=== PATIENT | female | born 1960 | race Caucasian/White ===

== ENCOUNTER 2021-04-08 16:23 | Inpatient (IN) | payer OTHER, MEDICAID ==
[~2021-04-08] VITALS: Ht 154.9 cm; Wt 80.3 kg
[2021-04-08 16:23] VITALS: BP_SYST 143
--- NOTE | 2021-04-08 16:23 | NUR ---
BROUGHT BACK TO BED #7 AND TRIAGED. REPORT GIVEN TO RICHY
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
--- NOTE | 2021-04-08 16:30 | NUR ---
ER at bedside examining patient.
--- NOTE | 2021-04-08 16:37 | NUR ---
Pt was saturating 88% on RA. Pt put on 3L simple face mask saturating 94% RR 25.
--- NOTE | 2021-04-08 16:43 | NUR ---
Upon further examination pt reports she did not lose consioussness and she is having some midline back pain 5/10.
--- NOTE | 2021-04-08 16:43 | NUR ---
Pt has equal japanese interpreter strength in bilateral hands radial pulse palpable in right radial and brachial. Pt reports she cannot lift her right arm. Cap refill less than 2
--- NOTE | 2021-04-08 16:43 | NUR ---
X-ray at bedside.
--- NOTE | 2021-04-08 17:17 | NUR ---
Dr. eMlgar at bedside performing ultrasound examination.
--- NOTE | 2021-04-08 18:21 | NUR ---
Lab at bedside.
--- NOTE | 2021-04-08 18:23 | NUR ---
Pt asleep in [facility] attached to monitor VSS. Breathing is even and unlabored. Family at bedside.
--- NOTE | 2021-04-08 18:35 | NUR ---
Covid swab collected and sent to lab.
--- NOTE | 2021-04-08 18:35 | NUR ---
Breathing is even and unlabored.
--- NOTE | 2021-04-08 18:35 | NUR ---
Pt taken off face mask saturating 97% RA. RR 20
--- NOTE | 2021-04-08 18:45 | NUR ---
PT HAD LARGE AMT OF EMESIS, UNDIGESTED FOOD, PT CLEANED AND REDRESSED. DR GODOY AWARE
--- NOTE | 2021-04-08 18:53 | NUR ---
Pt vomitted. Pt given zofran per MD order. Pt cleaned and given new gown.
[2021-04-08 18:56] LABS: BASOPHILS % (AUTO) 0.3 % (0.0-2.0); EOSINOPHILS # (AUTO) 0.1 K/uL (0.0-0.4); EOSINOPHILS % (AUTO) 0.5 % (0.0-4.0); HEMATOCRIT 34.9 % (36-48); HEMOGLOBIN 11.5 g/dL (12.0-16.0); LYMPHOCYTES # (AUTO) 1.4 K/uL (1.0-5.5); LYMPHOCYTES % (AUTO) 9.3 % (20.5-51.5); MEAN CORPUSCULAR HEMOGLOBIN 30 pg (27-31); MEAN CORPUSCULAR HGB CONC 33 % (32-36); MEAN CORPUSCULAR VOLUME 92 fL (79.0-98.0); MONOCYTES # (AUTO) 1.3 K/uL (0.0-1.0); MONOCYTES % (AUTO) 8.5 % (1.7-9.3); NEUTROPHILS # (AUTO) 12.7 K/uL (1.8-7.7); NEUTROPHILS % (AUTO) 81.4 % (40.0-70.0); PLATELET COUNT (AUTO) 211 K/uL (130-430); RED CELL DISTRIBUTION WIDTH 13.9 % (9.0-15.0); WHITE BLOOD COUNT (AUTO) 15.6 K/uL (4.8-10.8)
[2021-04-08] MEDS ORDERED: ONDANSETRON HCL 4 MG/2 ML VIAL IVP ONE (19:00)
[2021-04-08 19:02] LABS: CALCIUM 8.6 mg/dL (8.4-11.0); CREATININE 0.75 mg/dL (0.55-1.30); POTASSIUM 3.3 mmol/L (3.5-5.1)
[2021-04-08 19:08] LABS: ALBUMIN 3.5 g/dL (3.4-4.8); TOTAL BILIRUBIN 0.4 mg/dL (0.0-1.0)
--- NOTE | 2021-04-08 19:20 | NUR ---
Patient transported to radiology via gurney, accompanied by rayray.
--- NOTE | 2021-04-08 19:39 | NUR ---
Pt back from CT.
--- NOTE | 2021-04-08 19:41 | NUR ---
Care endorsed to Rajan LOPEZ.
--- NOTE | 2021-04-08 20:00 | NUR ---
PT RESTING IN BED COMFORTBALLY AWAITING TRANSFER. FAMILY MEMBER AT BEDSIDE
[2021-04-08] MEDS ORDERED: D5/0.45 NS 1,000 ML IV SCH (20:45)
--- NOTE | 2021-04-08 21:00 | NUR ---
Patient will be admitted to care of DR TAVARES. Admitted to MS unit. Will go to room TBD. Belongings list completed. Complete and up to date summary report printed. SBAR report to be given at bedside with opportunity for questions.
--- NOTE | 2021-04-08 21:26 | NUR ---
PT IS FULL CODE
--- NOTE | 2021-04-08 21:27 | NUR ---
OLEG CESPEDES DONE
[2021-04-08] MEDS ORDERED: LOSA50TA3 PO (21:30)
[2021-04-08] MEDS ORDERED: METF-518 PO (21:30)
[2021-04-08] MEDS ORDERED: LEVO100T9 PO (21:30)
[2021-04-08] MEDS ORDERED: PANT20TA2 PO (21:30)
[2021-04-08] MEDS ORDERED: LIP10 PO (21:30)
--- NOTE | 2021-04-08 21:53 | NUR ---
[facility] EMT TRANSFERRING PT TO 106 A. REPORT GIVEN TO NURSE OVER THE PHONE
--- NOTE | 2021-04-08 21:57 | NUR ---
ADMISSION NOTE Received patient from ER via gurney. Patient admitted with diagnosis of right humerus fracture . Patient is awake, alert, oriented X 4. Patient oriented to hospital room, call light, toileting, pain management and safety-teach back done. pt is aerobic speaking. Adult son at bedside translating. vs taken and wnl. iv patent and intact. Patient informed that their room number is 106. Personal belongings checked and Belongings List documented. All belongings sent home with family. Call light within reach. Bed in lowest and locked position. safety precuations placed.
--- NOTE | 2021-04-08 22:05 | NUR ---
CONSULT REQUEST PT REQUESTING DR. BARRAZA FOR ORTHOPEDIC CARE. PT SON STATES THAT DR. BARRAZA IS FAMILY.
[2021-04-08 22:18] VITALS: BP_SYST 108
[2021-04-08] MEDS ORDERED: HYDROcodone/ACETAMIN 5-325 MG TAB (NORCO/ VICODIN) PO PRN (22:30)
[2021-04-08] MEDS ORDERED: NALOXONE HCL 0.4 MG/ML AMP (NARCAN) IVP PRN ×2 (22:30→23:45)
[2021-04-08] MEDS ORDERED: ONDANSETRON 4 MG ODT TAB PO PRN (22:30)
--- NOTE | 2021-04-08 22:48 | NUR ---
PT FAMILY AT BEDSIDE AND ADULT DAUGHTER AT BEDSIDE WITH PT AND ADULT SON.
--- NOTE | 2021-04-08 23:23 | NUR ---
ROUNDS PT RESTING IN BED WITH ADULT SON AT BEDSIDE. NO SIGNS OF DISTRESS NOTED. RESPIRATIONS EVEN AND UNLABORED ON RA. PT REQUESTS ANTIHISTAMINE SPRAY. WILL PAGE MD FOR ORDERS. PER SLEEVE WHEEL MAKER AND CHARGE NURSE, SON IS ALLOWED TO STAY THE NIGHT FOR TONIGHT. PT AND SON EDUCATED AND INFORMED. PT AND SON VERBALIZED UNDERSTANDING.
[2021-04-08 23:35] VITALS: BP_SYST 106
[2021-04-08] MEDS ORDERED: DEXTROSE 50% JECT 50 ML DISP.SYRIN IVP PRN (23:45)
[2021-04-08] MEDS ORDERED: GLUCOSE (DEXTROSE) ORAL GEL -Adults PO PRN (23:45)
[2021-04-08] MEDS ORDERED: D5W 1,000 ML IV PRN (23:45)
[2021-04-08] MEDS ORDERED: LORazepam 2 MG/ML VIAL IVP PRN (23:45)
[2021-04-08] MEDS ORDERED: ONDANSETRON HCL 4 MG/2 ML VIAL IVP PRN (23:45)
--- NOTE | 2021-04-09 00:45 | NUR ---
CONSULTATION CALLED FOR DR LI FOR CONSULT OF HUMERUS FX ORDER BY DR MEDLEY SPOKE WITH GARRETT
[2021-04-09] MEDS: MORPHINE 2 MG/ML INJ. SYRINGE IVP PRN ×4 (03:31→20:06)
--- NOTE | 2021-04-09 03:58 | NUR ---
Consultation Paged Reason for Consultation: cardiac clearance Was consult called: Y Person who was notified: Giancarlo Consulting Physician: Neil Xiong Ordering Physician: Federico Matamoros
[2021-04-09] MEDS: INSULIN REGULAR, HUMAN 100 UNITS/ML, 10 ML VIAL (humuLIN R) SUBCUT PRN ×2 (05:17→17:57)
--- NOTE | 2021-04-09 05:45 | NUR ---
BLOOD SUGAR 312. REGULAR INSULIN ADMINISTERED PER SLIDING SCALE ORDER. PT CONCERNED ABOUT HAVING TO GET INSULIN PERMANENTLY. PT EDUCATED ON PLAN OF CARE AND INTERVENTIONS FOR ELEVATED BLOOD GLUCOSE. PT VERBALIZED UNDERSTANDING.
--- NOTE | 2021-04-09 05:54 | NUR ---
RADIOLOGY AT BEDSIDE PORTABLE XRAY
--- NOTE | 2021-04-09 06:27 | NUR ---
CLOSING NOTE PATIENT LAYING IN BED WITH EYES CLOSED. RESPIRATIONS EVEN AND UNLABORED ON RA. NO SIGNS OF DISTRESS NOTED. LEFT HAND IV PATENT AND INTACT. FLUSHES WELL. SALINE LOCKED. PT SON AT BEDSIDE. SAFETY PRECAUTIONS IN PLACE. ALL NEEDS MET.
--- NOTE | 2021-04-09 06:52 | NUR ---
Nutrition Update Samir Scale 16 noted. Pt admitted for Humerus Fracture Diet: NPO and CCHO (2 active diet orders) BMI: 33.5 kg/m2 RD to follow per nutrition care standards.
[2021-04-09 07:05] LABS: BASOPHILS % (AUTO) 0.1 % (0.0-2.0); HEMATOCRIT 28.7 % (36-48); HEMOGLOBIN 9.7 g/dL (12.0-16.0); LYMPHOCYTES # (AUTO) 0.6 K/uL (1.0-5.5); LYMPHOCYTES % (AUTO) 8.5 % (20.5-51.5); MEAN CORPUSCULAR HEMOGLOBIN 31 pg (27-31); MEAN CORPUSCULAR HGB CONC 34 % (32-36); MEAN CORPUSCULAR VOLUME 91 fL (79.0-98.0); MONOCYTES # (AUTO) 0.8 K/uL (0.0-1.0); MONOCYTES % (AUTO) 10.8 % (1.7-9.3); NEUTROPHILS # (AUTO) 5.7 K/uL (1.8-7.7); NEUTROPHILS % (AUTO) 80.6 % (40.0-70.0); PLATELET COUNT (AUTO) 166 K/uL (130-430); RED BLOOD CELL COUNT(AUTO) 3.16 MIL/uL (4.2-6.2); WHITE BLOOD COUNT (AUTO) 7.1 K/uL (4.8-10.8)
[2021-04-09 07:06] LABS: INR 1.1 (0.8-1.2); PROTHROMBIN TIME 11.8 SECS (9.5-12.5)
[2021-04-09 07:25] LABS: ALBUMIN 3.1 g/dL (3.4-4.8); CALCIUM 8.7 mg/dL (8.4-11.0); CREATININE 0.73 mg/dL (0.55-1.30); PHOSPHORUS 2.7 mg/dL (2.7-4.5); POTASSIUM 3.6 mmol/L (3.5-5.1); TOTAL BILIRUBIN 0.3 mg/dL (0.0-1.0)
--- NOTE | 2021-04-09 07:30 | NUR ---
Morning Rounds: Patient resting during rounds. With limited right shoulder movement due to fracture. Son at the bedside. Call light with in reach. Bed locked at lowest position. Condition guarded.
[2021-04-09 08:00] VITALS: BP_SYST 118
--- NOTE | 2021-04-09 09:10 | NUR ---
Banks insertion: Patient had a right shoulder fracture and not able to move her hips with assistance,because of pain. Banks inserted aseptically as ordered, using Maori #16,obtained urine sample for urinalysis.
[2021-04-09] MEDS: DOCUSATE SODIUM 100 MG CAPSULE PO SCH ×2 (10:02→22:21)
--- NOTE | 2021-04-09 10:04 | NUR ---
Iv pain meds: Patient c/o right shoulder pain and iv Morphine given per request,with no problem.
[2021-04-09 10:18] LABS: BILIRUBIN,URINE NEGATIVE (NEGATIVE); BLOOD, URINE 3+ (NEGATIVE); CLARITY/URINE CLEAR (CLEAR); COLOR,URINE YELLOW (YELLOW); GLUCOSE,URINE 3+ (NEGATIVE); KETONES,URINE NEGATIVE (NEGATIVE); LEUKOCYTE ESTERASE ,URINE NEGATIVE (NEGATIVE); NITRITE, URINE NEGATIVE (NEGATIVE); PROTEIN URINE 1+ (NEGATIVE); UROBILINOGEN,URINE 0.2 (0.2-1.0)
[2021-04-09 11:26] VITALS: BP_SYST 120
[2021-04-09 11:34] LABS: BACTERIA,URINE RARE /HPF (None Seen); MUCUS,URINE 3+ /LPF (None Seen); WBC,URINE 0-3 /HPF (0-3)
--- NOTE | 2021-04-09 14:35 | NUR ---
Surgeon rounds: Dr Larsen in the room and spoke with patient.Per patient and family Dr. Larsen will not performed the surgery instead Dr Ordaz will.Will f/u Dr Ordaz per patient's request.
[2021-04-09 15:33] VITALS: BP_SYST 120
--- NOTE | 2021-04-09 15:39 | NUR ---
Morphine iv: Patient c/o right shoulder pain and iv Morphine given per patient's request. No problem.
--- NOTE | 2021-04-09 15:48 | NUR ---
PUT ANOTHER CALL TO ORTHO CONSULT DR LI. SPOKE TO DR LI AND HE SAID HE WILL BE HERE IN 15 MINS.
--- NOTE | 2021-04-09 16:50 | NUR ---
ORTHO SURGEON: DR LI IN THE ROOM AND SPOKE TO FAMILY AND PATIENT.EXPLAINED PATIENT THE PROCEDURE TO BE DONE TOMORROW AND AGREEABLE.DISCUSSED PLAN OF CARE.
[2021-04-09] MEDS ORDERED: LIDOCAINE PATCH 5% 1 EA TP ONE (17:15)
--- NOTE | 2021-04-09 18:09 | NUR ---
EVENING ROUNDS: PATIENT RESTING. BLOOD SUGAR TAKEN,WITH INSULIN COVERAGE GIVEN PER SLIDING SCALE.PATIENT ATE DINNER ALREADY. INSTRUCTED PATIENT NOTHING BY MOUTH AFTER MIDNIGHT AND UNDERSTOOD INSTRUCTIONS GIVEN.FAMILY AT THE BEDSIDE. WILL ENDORSED TO NIGHT NURSE TO SECURE CONSENT. STABLE.
[2021-04-09 21:57] VITALS: BP_SYST 129
[2021-04-09] MEDS: HYDROmorphone 2 MG/ML VIAL IVP PRN (23:32)
[2021-04-10] MEDS: MORPHINE 2 MG/ML INJ. SYRINGE IVP PRN ×2 (00:41→10:37)
[2021-04-10] MEDS: INSULIN REGULAR, HUMAN 100 UNITS/ML, 10 ML VIAL (humuLIN R) SUBCUT PRN ×4 (00:55→23:51)
--- NOTE | 2021-04-10 00:56 | NUR ---
I RECEIVED PT IN BED ALERT ORIENTED FAMILY IS AT BEDSIDE ,SHE IS ON RA LUNGS ARE CLEAR , VSS , SL INTACT AND PATENT , SKIN INTACT .THE SIGNED CONSENT FOR SURGERLY AND BLOOD TRANSFUSION , LATER SHE C/O PAINFUL SHOULDER AND ASKED FOR MORPHONE I AGAVE IT TO HER SHE SLEPT UNTIL MN WHEN SHE WOKE UP AND ASKED DILAUDID AND I GAVE IT TO HER AFTER I HR SHE ASKED FOR MORHINE AND I GAVE IT TO HER AND I CHECKED HER BLOOD SUGAR AND WAS 162 AND SHE REFUSED INSULIN BECAUSE SHE IS GOING TO NPO , IS AT BED SIDE
[2021-04-10 00:57] VITALS: BP_SYST 135
[2021-04-10] MEDS: HYDROmorphone 2 MG/ML VIAL IVP PRN (03:29)
--- NOTE | 2021-04-10 04:19 | NUR ---
PT IS SLEEPING WELL AFTER GETTING DILAUDID , VSS
[2021-04-10] MEDS: MORPHINE 4 MG INJ. 4 MG/ML VIAL IVP PRN ×2 (05:26→23:39)
--- NOTE | 2021-04-10 05:42 | NUR ---
PT ASKED FOR PAIN MEDICATION DILAUDID IS NOT DUE AND SHE WANTS A STRONG PAIN MED BECAUSE SHE IS IN SEVERE PAIN , SO MORPHINE 4MG GIVEN AND BLOOD SUGAR CHECKED AND IS 128 NO COVERAGE
[2021-04-10 06:14] VITALS: BP_SYST 130
--- NOTE | 2021-04-10 06:42 | NUR ---
PTS PAIN WAS WELL CONTROLLED SHE SLEPT WELL
[2021-04-10 07:19] LABS: BASOPHILS % (AUTO) 0.4 % (0.0-2.0); EOSINOPHILS # (AUTO) 0.1 K/uL (0.0-0.4); EOSINOPHILS % (AUTO) 0.7 % (0.0-4.0); HEMOGLOBIN 9.3 g/dL (12.0-16.0); LYMPHOCYTES # (AUTO) 1.8 K/uL (1.0-5.5); LYMPHOCYTES % (AUTO) 22.4 % (20.5-51.5); MEAN CORPUSCULAR HEMOGLOBIN 30 pg (27-31); MEAN CORPUSCULAR HGB CONC 33 % (32-36); MEAN CORPUSCULAR VOLUME 91 fL (79.0-98.0); MONOCYTES # (AUTO) 0.8 K/uL (0.0-1.0); MONOCYTES % (AUTO) 10.7 % (1.7-9.3); NEUTROPHILS # (AUTO) 5.2 K/uL (1.8-7.7); NEUTROPHILS % (AUTO) 65.8 % (40.0-70.0); PLATELET COUNT (AUTO) 152 K/uL (130-430); RED BLOOD CELL COUNT(AUTO) 3.08 MIL/uL (4.2-6.2); RED CELL DISTRIBUTION WIDTH 13.9 % (9.0-15.0); WHITE BLOOD COUNT (AUTO) 7.9 K/uL (4.8-10.8)
--- NOTE | 2021-04-10 07:45 | NUR ---
OPENING NOTES: PATIENT RESTING IN BED. BREATHING EVEN AND NON LABORED. NPO. DENIES DISCOMFORT AT THIS TIME. FALL AND SAFETY REINFORCED. CALL LIGHT WITHIN REACH.
[2021-04-10 07:49] LABS: CALCIUM 8.8 mg/dL (8.4-11.0); CREATININE 0.61 mg/dL (0.55-1.30); POTASSIUM 3.8 mmol/L (3.5-5.1)
[2021-04-10 08:00] VITALS: BP_SYST 101
[2021-04-10] MEDS: DOCUSATE SODIUM 100 MG CAPSULE PO SCH ×2 (09:00→20:32)
[2021-04-10] MEDS ORDERED: LIDOCAINE PATCH 5% 1 EA TP SCH (09:00)
[2021-04-10 11:25] VITALS: BP_SYST 116
[2021-04-10] MEDS ORDERED: CEFAZOLIN 1 GM IVPB PREMIX 50 ML IV ONE (13:46)
[2021-04-10] MEDS ORDERED: BUPIVACAINE LIPOSOME/PF 266 MG/20 ML VIAL INFIL ONE ×2 (13:46→17:25)
[2021-04-10] MEDS ORDERED: POLYMYXIN 500,000/BACIT.10,000 UNITS in NS IRR 1 L IR ONE (13:48)
--- NOTE | 2021-04-10 13:50 | NUR ---
PATIENT BROUGHT TO OR: PATIENT BROUGHT TO OR VIA GURNEY FOR ORIF, RIGHT SHOULDER. PATIENT IN STABLE CONDITION.
[2021-04-10] MEDS ORDERED: fentaNYL CITRATE/PF 100 MCG/2 ML AMP IVP PRN (15:45)
[2021-04-10] MEDS ORDERED: ONDANSETRON HCL 4 MG/2 ML VIAL IVP PRN (15:45)
[2021-04-10] MEDS ORDERED: METOCLOPRAMIDE HCL 10 MG/2 ML VIAL IVP PRN (15:45)
[2021-04-10] MEDS ORDERED: CEFAZOLIN 2 GM IVPB PREMIX 50 ML IV ONE (17:25)
[2021-04-10] MEDS ORDERED: MIDAZOLAM HCL 5 MG/ML VIAL (VERSED) IV ONE (17:25)
[2021-04-10] MEDS ORDERED: KETOROLAC TROMETHAMINE 30 MG VIAL ONE (17:25)
[2021-04-10] MEDS ORDERED: WATER FOR IRRIGATION,STERILE 1,000 ML IRRIG.SOLN IR ONE (17:25)
[2021-04-10] MEDS ORDERED: SEVOFLURANE 15 MIN GAS INH ONE (17:25)
[2021-04-10] MEDS ORDERED: LR 1,000 ML IV.SOLN IV ONE (17:25)
[2021-04-10] MEDS ORDERED: BUPIVACAINE /EPINEPHRINE/PF 0.25% 30 ML VIAL INJ ONE (17:25)
[2021-04-10] MEDS ORDERED: ROCURONIUM BROMIDE 10 MG/ML (ZEMURON) ONE (17:25)
[2021-04-10] MEDS ORDERED: NS IRRIG SOLN 1000 ML IR ONE (17:25)
[2021-04-10] MEDS ORDERED: ONDANSETRON HCL 4 MG/2 ML VIAL ONE (17:25)
[2021-04-10] MEDS ORDERED: METOCLOPRAMIDE HCL 10 MG/2 ML VIAL ONE (17:25)
[2021-04-10] MEDS ORDERED: PROPOFOL 200MG/ 20ML VIAL (DIPRIVAN) IV ONE (17:25)
[2021-04-10] MEDS ORDERED: DEXAMETHASONE SOD PHOSPHATE 4 MG/ML VIAL ONE (17:25)
[2021-04-10] MEDS ORDERED: fentaNYL CITRATE/PF 100 MCG/2 ML AMP ONE ×2 (17:25→17:50)
[2021-04-10] MEDS ORDERED: NALOXONE HCL 0.4 MG/ML AMP (NARCAN) IVP PRN (17:45)
[2021-04-10] MEDS: fentaNYL CITRATE/PF 100 MCG/2 ML AMP IVP PRN ×2 (17:47→18:10)
--- NOTE | 2021-04-10 18:30 | NUR ---
PATIENT BROUGHT BACK FROM OR: PATIENT BROUGHT BACK FROM OR S/P ORIF R ARM. STABLE VS. NO S/S OF ACUTE DISTRESS NOTED. BED LOCKED, ALARM ON AND IN LOWEST POSITION. CALL LIGHT WITHIN REACH.
--- NOTE | 2021-04-10 19:20 | NUR ---
CLOSING NOTES: PATIENT RESTING IN BED. NO SIGNS OF ACUTE DISTRESS NOTED. ICE PACK OVER SURGICAL SITE (ORIF) R SHOULDER. SCDS IN PLACED. BED LOCKED, ALARM ON AND IN LOWEST POSITION. FALL AND SAFETY REINFORCED. CALL LIGHT WITHIN REACH.
--- NOTE | 2021-04-10 19:30 | NUR ---
OPENING NOTE RECEIVED REPORT FROM DAY RN. PT LAYING IN BED WITH NO SIGNS OF DISTRESS NOTED. RESPIRATIONS EVEN AND UNLABORED ON 3L O2 VIA NC. PT , BROTHER AND DAUGHTER AT BEDSIDE. TAMEZ INTACT AND DRAINING YELLOW FLUID BY GRAVITY. LEFT HAND IV PATENT AND INTACT. FLUSHES WELL. NO SIGNS OF INFILTRATION. BED IN LOWEST AND LOCKED POSITION. PT C/O PAIN 5/10 AT THIS TIME TO RIGHT UPPER ARM AND LEFT RIBS. RIGHT UPPER ARM DRESSING CLEAN AND INTACT. NO DRAINAGE NOTED. PT HAS BRUISING TO RIGHT UPPER ARM. CALL LIGHT WITHIN REACH. SAFETY PRECAUTIONS IN PLACE. WILL CONTINUE TO MONITOR.
[2021-04-10 20:00] VITALS: BP_SYST 122
[2021-04-10] MEDS: HYDROcodone/ACETAMIN 5-325 MG TAB (NORCO/ VICODIN) PO PRN (20:31)
--- NOTE | 2021-04-10 20:31 | NUR ---
PAIN PT C/O PAIN 5/10 AND REQUESTING PRN MEDICATION. PT ABLE TO SWALLOW WELL. NO SIGNS OF DISTRESS NOTED. WILL CONTINUE TO MONITOR.
--- NOTE | 2021-04-10 21:04 | NUR ---
INCENTIVE SPIROMETER EDUCATED PT ON USE OF IS. PT ABLE TO DEMONSTRATE USING IS. PT VERBALIZED UNDERSTANDING WITH ADULT SON TRANSLATING.
[2021-04-10] MEDS: CEFAZOLIN 1 GM IVPB PREMIX 50 ML IV SCH (21:15)
[2021-04-11] VITALS (9 sets, daily range): BP systolic 85–119
--- NOTE | 2021-04-11 00:12 | NUR ---
BLOOD GLUCOSE BS 228. REGULAR INSULIN ADMINISTERED PER SLIDING SCALE. PT TOLERATED WELL.
[2021-04-11] MEDS: CEFAZOLIN 1 GM IVPB PREMIX 50 ML IV SCH (06:07)
[2021-04-11] MEDS: MORPHINE 4 MG INJ. 4 MG/ML VIAL IVP PRN ×3 (06:20→20:47)
--- NOTE | 2021-04-11 07:26 | NUR ---
CLOSING NOTE PT IN BED WITH RESPIRATIONS EVEN AND UNLABORED. NO SIGNS OF DISTRESS NOTED. ALL NEEDS MET. SAFETY PRECAUTIONS IN PLACE. CALL LIGHT WITHIN REACH. WILL ENDORSE TO DAY RN.
[2021-04-11 07:33] LABS: BASOPHILS % (AUTO) 0.2 % (0.0-2.0); EOSINOPHILS % (AUTO) 0.3 % (0.0-4.0); HEMOGLOBIN 7.1 g/dL (12.0-16.0); LYMPHOCYTES # (AUTO) 1.2 K/uL (1.0-5.5); LYMPHOCYTES % (AUTO) 12.4 % (20.5-51.5); MEAN CORPUSCULAR HEMOGLOBIN 30 pg (27-31); MEAN CORPUSCULAR HGB CONC 33 % (32-36); MEAN CORPUSCULAR VOLUME 91 fL (79.0-98.0); MONOCYTES % (AUTO) 10.3 % (1.7-9.3); NEUTROPHILS # (AUTO) 7.6 K/uL (1.8-7.7); NEUTROPHILS % (AUTO) 76.8 % (40.0-70.0); PLATELET COUNT (AUTO) 148 K/uL (130-430); RED BLOOD CELL COUNT(AUTO) 2.34 MIL/uL (4.2-6.2); RED CELL DISTRIBUTION WIDTH 13.9 % (9.0-15.0); WHITE BLOOD COUNT (AUTO) 9.9 K/uL (4.8-10.8)
--- NOTE | 2021-04-11 08:00 | NUR ---
Opening note patient resting in bed, a/ox4, states she has mild but tolerable pain at this time, assessment complete, IV line is patent and infusing well, Banks catheter in place draining to gravity, dressing to right upper lateral arm is clean, dry and intact, educated patient on plan of care and call light system, she verbalized understanding, family is at bedside, continuing to monitor, bed in lowest position, two side rails up, call light within reach, fall and aspiration precautions in place.
[2021-04-11 08:10] LABS: HEMATOCRIT 21.3 % (36-48)
[2021-04-11 08:18] LABS: ALBUMIN 2.5 g/dL (3.4-4.8); CALCIUM 8.3 mg/dL (8.4-11.0); CREATININE 0.53 mg/dL (0.55-1.30); POTASSIUM 3.9 mmol/L (3.5-5.1); TOTAL BILIRUBIN 0.5 mg/dL (0.0-1.0)
[2021-04-11] MEDS: DOCUSATE SODIUM 100 MG CAPSULE PO SCH ×2 (08:39→20:41)
[2021-04-11] MEDS: LIDOCAINE PATCH 5% 1 EA TP SCH (08:42)
[2021-04-11] MEDS: HYDROcodone/ACETAMIN 5-325 MG TAB (NORCO/ VICODIN) PO PRN (10:13)
--- NOTE | 2021-04-11 10:57 | NUR ---
Third page for Kwabena Matamoros regarding critical labs.
[2021-04-11] MEDS: ENOXAPARIN SODIUM 40 MG/0.4 ML SYRINGE SUBCUT SCH (11:03)
[2021-04-11] MEDS: HYDROmorphone 2 MG/ML VIAL IVP PRN (16:37)
--- NOTE | 2021-04-11 16:45 | NUR ---
RN Note patient resting in bed, complaining of severe pain to right arm/shoulder - assessed neurovascular status - same as previous - administered PRN medication for breakthrough pain at this time, IV line is patent and infusing well - continuing to monitor the patient, bed in lowest position, three side rails up, bed alarm on, call light placed within reach, fall and aspiration precautions in place.
--- NOTE | 2021-04-11 18:21 | NUR ---
Closing note patient resting in bed, awake, states pain is better controlled now, educated the patient on pain management - not waiting for the pain to become severe to ask for pain medication - she verbalized understanding. IV line is patent and infusing well, Banks Catheter in place, draining to gravity, all needs met, will endorse report to NOC shift nurse, bed in lowest position, three side rails up, call light within reach, family is at bedside, fall and aspiration precautions in place.
[2021-04-11] MEDS: FERROUS SULFATE 325 MG TABLET.DR PO SCH (20:41)
--- NOTE | 2021-04-11 21:45 | NUR ---
OPENING NOTE RECEIVED PT FROM RN. PT LAYING IN BED AWAKE. AT BEDSIDE. PT DENIES SOB. NO GRIMACING OR GUARDING NOTED. BED IN LOWEST AND LOCKED POSITION. CALL LIGHT WITHIN REACH. WILL CONTINUE TO MONITOR.
[2021-04-12 00:20] VITALS: BP_SYST 97
[2021-04-12] MEDS: MORPHINE 4 MG INJ. 4 MG/ML VIAL IVP PRN ×3 (00:40→15:36)
--- NOTE | 2021-04-12 00:50 | NUR ---
ROUNDS PAIN MEDICATION ADMINISTERED PER REQUEST OF PT. NO SIGNS OF DISTRESS NOTED. PT TOLERATED WELL. CALL LIGHT WITHIN REACH. SAFETY PRECAUTIONS IN PLACE. WILL CONTINUE TO MONITOR.
[2021-04-12 06:51] LABS: BASOPHILS # (AUTO) 0.1 K/uL (0.0-0.2); BASOPHILS % (AUTO) 0.7 % (0.0-2.0); EOSINOPHILS # (AUTO) 0.2 K/uL (0.0-0.4); EOSINOPHILS % (AUTO) 2.3 % (0.0-4.0); LYMPHOCYTES # (AUTO) 1.8 K/uL (1.0-5.5); LYMPHOCYTES % (AUTO) 21.3 % (20.5-51.5); MEAN CORPUSCULAR HEMOGLOBIN 30 pg (27-31); MEAN CORPUSCULAR HGB CONC 34 % (32-36); MEAN CORPUSCULAR VOLUME 91 fL (79.0-98.0); MONOCYTES # (AUTO) 0.9 K/uL (0.0-1.0); MONOCYTES % (AUTO) 10.7 % (1.7-9.3); NEUTROPHILS # (AUTO) 5.4 K/uL (1.8-7.7); PLATELET COUNT (AUTO) 171 K/uL (130-430); RED BLOOD CELL COUNT(AUTO) 2.13 MIL/uL (4.2-6.2); RED CELL DISTRIBUTION WIDTH 13.6 % (9.0-15.0); WHITE BLOOD COUNT (AUTO) 8.2 K/uL (4.8-10.8)
--- NOTE | 2021-04-12 06:53 | NUR ---
CLOSING NOTE PATIENT LAYING IN BED. RESPIRATIONS EVEN AND UNLABORED. NO SIGNS OF DISTRESS NOTED. ALL NEEDS MET. SAFETY PRECAUTIONS IN PLACE. CALL LIGHT WITHIN REACH. PT STABLE. WILL ENDORSE TO DAY RN.
[2021-04-12 07:43] LABS: ALBUMIN 2.3 g/dL (3.4-4.8); CREATININE 0.49 mg/dL (0.55-1.30); POTASSIUM 3.9 mmol/L (3.5-5.1); TOTAL BILIRUBIN 0.6 mg/dL (0.0-1.0)
[2021-04-12 08:00] VITALS: BP_SYST 106
--- NOTE | 2021-04-12 08:00 | NUR ---
OPENING NOTES AWAKE AND ORIENTED. ON 2 LITERS OF OXYGEN SUPPORT VIA NASAL CANNULA. PATIENT REPORTS TO HAVE SHORTNESS OF BREATH BECAUSE OF 8/10 RIGHT SHOULDER PAIN. PATIENT ALSO FEELS WARM AT THIS TIME. TEMPERATURE OF 100F. SURGICAL DRESSING ON RIGHT SHOULDER DRY AND INTACT. SWELLING NOTED ON THE SURGICAL AREA. IV ACCESS ON LEFT HAND INTACT. PATIENT WANTED TYLENOL FOR NOW WHILE WAITING FOR THE NEXT SCHEDULED PAIN MEDICATION. SAFETY CHECKS DONE. CALL LIGHT WITHIN REACH. WILL MONITOR.
[2021-04-12] MEDS: LIDOCAINE PATCH 5% 1 EA TP SCH (08:45)
[2021-04-12] MEDS: FERROUS SULFATE 325 MG TABLET.DR PO SCH ×2 (08:46→20:23)
[2021-04-12] MEDS: ACETAMINOPHEN 325 MG TABLET PO PRN (08:46)
[2021-04-12] MEDS: DOCUSATE SODIUM 100 MG CAPSULE PO SCH ×2 (08:47→20:23)
[2021-04-12] MEDS: ENOXAPARIN SODIUM 40 MG/0.4 ML SYRINGE SUBCUT SCH (08:48)
[2021-04-12] MEDS: HYDROmorphone 2 MG/ML VIAL IVP PRN (09:43)
[2021-04-12 09:48] LABS: HEMOGLOBIN 6.5 g/dL (12.0-16.0)
[2021-04-12 09:49] LABS: HEMATOCRIT 19.4 % (36-48)
--- NOTE | 2021-04-12 09:50 | NUR ---
PAIN PATIENT WANTED A DILAUDID INSTEAD OF A MORPHINE BECAUSE OF WORSENING SHOULDER PAIN. EXPLAINED THE USE AND SIDE EFFECT OF DILAUDID AND PATIENT VERBALIZED UNDERSTANDING.
--- NOTE | 2021-04-12 10:01 | NUR ---
CM Met with pt and son at bedside, discussed dcp to home. The pt is aaox 3 , lives with spouse and son. Per PT, the pt is able to ambulate independently, sp rt arm surgery but able to feed self. Per family , no DME need. They will buy own walker or cane if needed.
[2021-04-12 11:30] VITALS: BP_SYST 88
--- NOTE | 2021-04-12 11:30 | NUR ---
CONSENT FOR BLOOD TRANSFUSION CONSENT FOR BLOOD TRANSFUSION SIGNED BY SON BECAUSE PATIENT IS UNABLE TO USE HER RIGHT HAND. PATIENT IS AWARE OF THE RISKS OF BLOOD TRANSFUSION AND AGREED.
--- NOTE | 2021-04-12 11:54 | NUR ---
TREATMENT IS HELD TODAY BECAUSE THE PATIENT HAS LOW BLOOD PRESSURE AND HGB. RN WAS INFORMED AND IS IN AGREEMENT.
[2021-04-12 15:31] VITALS: BP_SYST 134
--- NOTE | 2021-04-12 16:10 | NUR ---
BT INITIATION: Consent signed, agreeing to administration of blood. Blood has been type and crossmatched. Blood sent from blood bank. Information on unit of blood checked against patient wristband at bedside by two nurses. All information matches. Patient or responsible republican informed of potential complications associated with blood transfusion. Informed of possible transfusion reaction symptoms. Aware of need to notify nurse at once of itching, shortness of breath, flushing, feeling of impending doom, or other symptoms not previously present. Vital signs taken within 5 minutes prior to initiation of transfusion. RN will remain with patient for first 15 minutes of transfusion at which time vital signs will be re-assessed.
[2021-04-12] MEDS ORDERED: NALOXONE HCL 0.4 MG/ML AMP (NARCAN) IVP PRN ×2 (17:30)
--- NOTE | 2021-04-12 17:30 | NUR ---
MD ROUNDS SEEN AND EXAMINED BY DR. MEDLEY. REPORTED TO MD THAT PATIENT HAS NO BOWEL MOVEMENT SINCE FRIDAY. HE SAID HE WILL PUT A PRESCRIPTION.
[2021-04-12] MEDS: INSULIN REGULAR, HUMAN 100 UNITS/ML, 10 ML VIAL (humuLIN R) SUBCUT PRN (18:14)
[2021-04-12] MEDS ORDERED: PHYTONADIONE 10 MG/ML AMP PO ONE (18:45)
--- NOTE | 2021-04-12 18:54 | NUR ---
CLOSING NOTES SEEN BY DR. LI. SAID THAT THE SWELLING ON THE ARM AND HAND IS NORMAL. ALL NEEDS MET THROUGHOUT SHIFT. BLOOD TRANSFUSION STILL RUNNING.
--- NOTE | 2021-04-12 19:30 | NUR ---
CLARIFICATION FOR VIT K: CALLED AND TALKED WITH PHARMACIST EDER REGARDING VIT K ORDER , PER EDER IT IS TO BE GIVEN VIA PO .
--- NOTE | 2021-04-12 19:40 | NUR ---
INITIAL NOTES; PT IS COMFORTABLE ; NOT IN ANY ACUTE DISTRESS; VITALS ARE STABLE ; ASSESSMENT COMPLETED ; NOTICED DRESSING TO R UPPER ARM , DRESSING CLEAN DRY AND INTACT ,PT HAS EDEMA TO R ARM , PER REPORT DR LI IS AWARE . BLOOD TRANSFUSION IS ALMOST COMPLETED ; PT DENIED ANY REACTIONS . WILL CONTINUE TO MONITOR PT . Addendum: 04/13/21 at 0109 by Horacio Peacock RN ON O2 2L NC , WILL CONTINUE TO MONITOR . Addendum: 04/13/21 at 0419 by Horacio Peacock RN PT USES INCENTIVE SPIROMETRY ONLY UPTO 500 , ENCOURAGED TO TO USE EVER HR X10 WHILE SHE IS AWAKE .
--- NOTE | 2021-04-12 19:50 | NUR ---
BLOOD TRANSFUSION COMPLETED: BLOOD TRANSFUSION IS COMPLETED AT THIS TIME , PT DENIED ANY ALLERGIC OR TRANSFUSION REACTIONS AT THIS TIME . VITALS ARE STABLE , NOTICED ORAL TEMP IS 99.2F , AND NOTICED THAT WAS THE PTS TEMP BEFORE . WILL CONINTUE TO MONITOR PT .
--- NOTE | 2021-04-12 20:01 | NUR ---
CALLED: DR LI CALLED TO CLARIFY THE VIT K ORDER, STATED " I ACCIDENTALLY ENTERED IT ON HER , I MEANT IT FOR DIFFERENT PATIENT ". ORDER STOPPED PER MD REQUEST .
[2021-04-12 20:07] VITALS: BP_SYST 107
[2021-04-12] MEDS: PSYLLIUM HUSK 1 PKT PACKET PO SCH (20:23)
[2021-04-12] MEDS: OXYCODONE/ACETAMINOPHEN 5-325 TABLET PO PRN (20:25)
--- NOTE | 2021-04-12 21:37 | NUR ---
CALLED BACK: DR MEDLEY CALLED BACK , NOTIFIED MD THAT PT AND FAMILY REFUSED TO DC TAMEZ CATHETER . MD ORDERED TO CONTINUE TAMEZ .
[2021-04-12] MEDS: MORPHINE 2 MG/ML INJ. SYRINGE IVP PRN (22:28)
--- NOTE | 2021-04-12 22:28 | NUR ---
NEW IV : IV ON THE LEFT HAND IS LEAKING , NEW IV STARTED TO THE LEFT HAND 22G, ON 2ND ATTEMPT ; GOOD BLOOD RETURN NOTICED, IV FLUSHED WELL .PT RECEIVED PERCOCET EARLIER , STILL PT C/O SEVERE PAIN , MEDICATED WITH MORPHINE PER ORDER .
--- NOTE | 2021-04-13 01:17 | NUR ---
PLACED PT BACK ON O2 2L NC , SAT DROPPED TO 89 WHILE SLEEPING , NOW PT IS 98% ON 2 L NC .
[2021-04-13 01:50] VITALS: BP_SYST 91
[2021-04-13] MEDS: OXYCODONE/ACETAMINOPHEN 5-325 TABLET PO PRN ×2 (03:30→08:39)
[2021-04-13 06:00] VITALS: BP_SYST 106
--- NOTE | 2021-04-13 06:30 | NUR ---
TAMEZ DCD: PT STATED TAMEZ CATH IS HURTING HER AND REQUESTING TO REMOVE IT , EDUCATED PT AND DCD TAMEZ CATH AND DISCARDED TAMEZ PER POLICY , PT TOLERATED PROCEDURE WELL . PT STATED SHE WANTS TO USE THE REST ROOM , WITH 2 PERSON ASSIST ASISTED PT TO RESTROOM , PT UNABLE TO HAVE ANY BM , AFTER CLEANING ASSISTED PT BACK TO BED ; PT IS COMFORTABLE .
[2021-04-13] MEDS: INSULIN REGULAR, HUMAN 100 UNITS/ML, 10 ML VIAL (humuLIN R) SUBCUT PRN ×2 (06:38→18:34)
[2021-04-13] MEDS ORDERED: PHYTONADIONE 10 MG/ML AMP PO ONE (07:00)
--- NOTE | 2021-04-13 07:10 | NUR ---
CLOSING NOTES: REPORT GIVEN TO RN AT BEDSIDE ; PT IS COMFORTABLE ; NOT IN ANY ACUTE DISTRESS; NO BM LAST NIGHT , JOI MARINO AT 630 AM , REQUESTED RN TO FOLLOW UP WITH VOIDING . ALL NEEDS ATTENDED , ENCOURAGED PT TO USE INCENTIVE SPIROMETRY .
[2021-04-13 07:58] LABS: BASOPHILS # (AUTO) 0.1 K/uL (0.0-0.2); BASOPHILS % (AUTO) 0.5 % (0.0-2.0); EOSINOPHILS # (AUTO) 0.4 K/uL (0.0-0.4); EOSINOPHILS % (AUTO) 2.8 % (0.0-4.0); HEMOGLOBIN 8.7 g/dL (12.0-16.0); LYMPHOCYTES % (AUTO) 23.3 % (20.5-51.5); MEAN CORPUSCULAR HEMOGLOBIN 31 pg (27-31); MEAN CORPUSCULAR HGB CONC 33 % (32-36); MEAN CORPUSCULAR VOLUME 91 fL (79.0-98.0); MONOCYTES # (AUTO) 0.8 K/uL (0.0-1.0); MONOCYTES % (AUTO) 6.4 % (1.7-9.3); NEUTROPHILS # (AUTO) 8.7 K/uL (1.8-7.7); PLATELET COUNT (AUTO) 209 K/uL (130-430); RED BLOOD CELL COUNT(AUTO) 2.85 MIL/uL (4.2-6.2); RED CELL DISTRIBUTION WIDTH 14.4 % (9.0-15.0); WHITE BLOOD COUNT (AUTO) 12.9 K/uL (4.8-10.8)
[2021-04-13 08:00] VITALS: BP_SYST 98
--- NOTE | 2021-04-13 08:00 | NUR ---
OPENING NOTES AWAKE AND ORIENTED. NO SHORTNESS OF BREATH ON ROOM AIR. COMPLAINED OF RIGHT SHOULDER PAIN. PATIENT AGREED TO HAVE PERCOCET FOR THE PAIN. IV ACCESS ON THE LEFT HAND. ENCOURAGED DEEP BREATHING EXERCISES USING THE INCENTIVE SPIROMETER. SAFETY CHECKS DONE. CALL LIGHT WITHIN REACH. WILL MONITOR.
[2021-04-13 08:35] LABS: ALBUMIN 2.4 g/dL (3.4-4.8); CALCIUM 8.1 mg/dL (8.4-11.0); CREATININE 0.54 mg/dL (0.55-1.30); POTASSIUM 4.1 mmol/L (3.5-5.1); TOTAL BILIRUBIN 2.3 mg/dL (0.0-1.0)
[2021-04-13 08:36] LABS: PROTHROMBIN TIME 10.7 SECS (9.5-12.5)
[2021-04-13] MEDS: DOCUSATE SODIUM 100 MG CAPSULE PO SCH ×2 (08:38→21:55)
[2021-04-13] MEDS: FERROUS SULFATE 325 MG TABLET.DR PO SCH ×2 (08:38→21:55)
[2021-04-13] MEDS: LIDOCAINE PATCH 5% 1 EA TP SCH (08:40)
[2021-04-13] MEDS: PSYLLIUM HUSK 1 PKT PACKET PO SCH ×3 (08:43→21:55)
[2021-04-13] MEDS: ENOXAPARIN SODIUM 40 MG/0.4 ML SYRINGE SUBCUT SCH (08:43)
--- NOTE | 2021-04-13 10:22 | NUR ---
Discharge Planning: DCP faxed pt DC planning order and packet for home health with PT to [place] [phone]. DCP to follow up. Addendum: 04/13/21 at 1212 by Shana Lora DP DCP spoke to Mg at [place] home health was set up with [facility] [phone]. DCP made CM aware and put into interventions.
--- NOTE | 2021-04-13 10:30 | NUR ---
PHYSICAL THERAPY THERAPIST, THU AT BEDSIDE. HE HELPED HER TO GO TO THE RESTROOM. PATIENT IS AWARE THAT A STOOL SAMPLE IS NEEDED. PATIENT DID NOT HAVE A BOWEL MOVEMENT.
[2021-04-13 11:22] VITALS: BP_SYST 93
[2021-04-13] MEDS: MORPHINE 2 MG/ML INJ. SYRINGE IVP PRN ×3 (11:54→22:10)
--- NOTE | 2021-04-13 14:08 | NUR ---
6CONSULTATION PAGED/CALLED Reason for Consultation: [] RESP FAIL/POSS PNA Person Who was Notified: [] SALLY Consulting Physician: [] DR KIM Appellate Law Clerk Specialty: [] PULMO Ordering Physician: [] DR MEDLEY
[2021-04-13 15:41] VITALS: BP_SYST 119
--- NOTE | 2021-04-13 17:15 | NUR ---
PAIN COMPLAINED OF 9/10 RIGHT SHOULDER PAIN EVEN WITHOUT MOVEMENT. PATIENT REQUESTED FOR A MORPHINE. ADMINISTERED.
--- NOTE | 2021-04-13 17:30 | NUR ---
Dietitian Recommendations * Recommend [facility] diet w/ Orion BID (modular provides an additional 180 kcal/day, 5 gm protein/day) TRANG, RD Please refer to Nutrition Assessment for details. Addendum: 04/13/21 at [address] Amended: Links added.
--- NOTE | 2021-04-13 18:50 | NUR ---
CLOSING NOTES RESTING. ALL NEEDS MET THROUGHOUT SHIFT. WILL ENDORSE TO NIGHT NURSE.
[2021-04-13 20:00] VITALS: BP_SYST 110
[2021-04-14] VITALS: BP_SYST 99
[2021-04-14] MEDS: OXYCODONE/ACETAMINOPHEN 5-325 TABLET PO PRN ×4 (01:13→21:33)
--- NOTE | 2021-04-14 06:49 | NUR ---
STOOL OB SPECIMEN COLLECTED AND SENT TO THE LAB.
[2021-04-14] MEDS ORDERED: IPRATROPIUM/ALBUTEROL SULFATE 3 ML AMPUL.NEB (DUONEB) INH ONE (07:15)
[2021-04-14 07:19] LABS: BASOPHILS % (AUTO) 0.3 % (0.0-2.0); EOSINOPHILS # (AUTO) 0.2 K/uL (0.0-0.4); EOSINOPHILS % (AUTO) 2.5 % (0.0-4.0); HEMATOCRIT 23.5 % (36-48); HEMOGLOBIN 7.8 g/dL (12.0-16.0); LYMPHOCYTES # (AUTO) 1.1 K/uL (1.0-5.5); LYMPHOCYTES % (AUTO) 17.9 % (20.5-51.5); MEAN CORPUSCULAR HEMOGLOBIN 31 pg (27-31); MEAN CORPUSCULAR HGB CONC 33 % (32-36); MEAN CORPUSCULAR VOLUME 92 fL (79.0-98.0); MONOCYTES # (AUTO) 0.5 K/uL (0.0-1.0); MONOCYTES % (AUTO) 9.1 % (1.7-9.3); NEUTROPHILS # (AUTO) 4.2 K/uL (1.8-7.7); NEUTROPHILS % (AUTO) 70.2 % (40.0-70.0); PLATELET COUNT (AUTO) 245 K/uL (130-430); RED BLOOD CELL COUNT(AUTO) 2.56 MIL/uL (4.2-6.2); RED CELL DISTRIBUTION WIDTH 13.9 % (9.0-15.0)
[2021-04-14 08:00] VITALS: BP_SYST 104
[2021-04-14] MEDS: PSYLLIUM HUSK 1 PKT PACKET PO SCH ×3 (09:00→20:18)
--- NOTE | 2021-04-14 09:10 | NUR ---
IV INSERTION OLD IV PAINFUL REMOVED CLEAN DRESSING APPLIED. NEW IV LINE STARTED ON LEFT ARM #22 WITH GOOD BLOOD RETURN . FLUSHED WELL.NO S/S OF INFILTRATION NOTED . PT TOLERATED.
[2021-04-14] MEDS: DOCUSATE SODIUM 100 MG CAPSULE PO SCH ×2 (09:30→20:18)
[2021-04-14] MEDS: FERROUS SULFATE 325 MG TABLET.DR PO SCH ×2 (09:30→20:18)
[2021-04-14] MEDS: LEVOFLOXACIN IN DEXTROSE 5 % 100 ML IV SCH (09:40)
[2021-04-14] MEDS: LIDOCAINE PATCH 5% 1 EA TP SCH (09:41)
[2021-04-14] MEDS: ENOXAPARIN SODIUM 40 MG/0.4 ML SYRINGE SUBCUT SCH (09:44)
[2021-04-14] MEDS: MORPHINE 2 MG/ML INJ. SYRINGE IVP PRN ×2 (09:44→16:24)
[2021-04-14 10:00] LABS: CALCIUM 8.2 mg/dL (8.4-11.0); CREATININE 0.5 mg/dL (0.55-1.30); POTASSIUM 3.7 mmol/L (3.5-5.1)
[2021-04-14] MEDS: IPRATROPIUM/ALBUTEROL SULFATE 3 ML AMPUL.NEB (DUONEB) INH SCH (11:38)
--- NOTE | 2021-04-14 11:50 | NUR ---
CONSULT HEMATOLOGY ANEMIA DR MCARTHUR.LUIS [phone] S/W RAY EXCHANGE
--- NOTE | 2021-04-14 12:46 | NUR ---
1200 Pt complain of pain 7/10 on right arm gave 1 tab percocet requested for 1 more tab also given for total of 2 tabs.
[2021-04-14 12:50] VITALS: BP_SYST 116
[2021-04-14] MEDS: INSULIN REGULAR, HUMAN 100 UNITS/ML, 10 ML VIAL (humuLIN R) SUBCUT PRN ×2 (13:12→17:05)
--- NOTE | 2021-04-14 17:08 | NUR ---
out of bed, walked around the room. R arm on sling, hand swollen, asked her whether she needs some more pain meds, declined at this time. bs right now 153, got covered with 2units regular insulin.
[2021-04-14 18:03] VITALS: BP_SYST 106
--- NOTE | 2021-04-14 19:10 | NUR ---
OPENING NOTES PATIENT RESTING, NO SIGNS OF DISTRESS NOTED. FAMILY AT BEDSIDE. CALL LIGHT WITHIN REACH, PATIENT DEMONSTRATES PROPER USAGE OF CALL LIGHT, BED ALARM ON, BED AT LOWEST POSITION, BED LOCKED. HOB ELEVATED. SLING AND PILLOW IN PLACE UNDER RIGHT ARM. FALL, RESPIRATORY, ASPIRATION AND SAFETY PRECAUTIONS IN PLACE. WILL CONTINUE TO MONITOR.
[2021-04-14 20:00] VITALS: BP_SYST 108
[2021-04-14 22:00] VITALS: BP_SYST 112
[2021-04-15] MEDS: IPRATROPIUM/ALBUTEROL SULFATE 3 ML AMPUL.NEB (DUONEB) INH SCH ×8 (00:18→23:20)
[2021-04-15 01:00] VITALS: BP_SYST 106
--- NOTE | 2021-04-15 01:00 | NUR ---
PATIENT RESTING, NO SIGNS OF DISTRESS NOTED, REPOSITIONED RIGHT ARM. SAFETY PRECAUTIONS IN PLACE. NO OTHER NEEDS AT THIS TIME. WILL CONTINUE TO MONITOR.
[2021-04-15 01:01] VITALS: BP_SYST 116
[2021-04-15] MEDS: OXYCODONE/ACETAMINOPHEN 5-325 TABLET PO PRN ×3 (01:36→14:21)
[2021-04-15 06:22] LABS: BASOPHILS % (AUTO) 0.3 % (0.0-2.0); EOSINOPHILS # (AUTO) 0.3 K/uL (0.0-0.4); EOSINOPHILS % (AUTO) 4.4 % (0.0-4.0); HEMATOCRIT 22.9 % (36-48); HEMOGLOBIN 7.7 g/dL (12.0-16.0); LYMPHOCYTES # (AUTO) 1.2 K/uL (1.0-5.5); LYMPHOCYTES % (AUTO) 20.2 % (20.5-51.5); MEAN CORPUSCULAR HEMOGLOBIN 31 pg (27-31); MEAN CORPUSCULAR HGB CONC 33 % (32-36); MEAN CORPUSCULAR VOLUME 92 fL (79.0-98.0); MONOCYTES # (AUTO) 0.6 K/uL (0.0-1.0); MONOCYTES % (AUTO) 10.2 % (1.7-9.3); NEUTROPHILS # (AUTO) 3.8 K/uL (1.8-7.7); NEUTROPHILS % (AUTO) 64.9 % (40.0-70.0); PLATELET COUNT (AUTO) 288 K/uL (130-430); RED BLOOD CELL COUNT(AUTO) 2.49 MIL/uL (4.2-6.2); RED CELL DISTRIBUTION WIDTH 14.1 % (9.0-15.0); RETICULOCYTE COUNT 4.2 % (0.5-1.5); WHITE BLOOD COUNT (AUTO) 5.9 K/uL (4.8-10.8)
--- NOTE | 2021-04-15 07:10 | NUR ---
CLOSING NOTES PATIENT RESTING, NO SIGNS OF DISTRESS NOTED. HOB ELEVATED, CALL LIGHT WITHIN REACH, BED ALARM ON, BED AT LOWEST POSITION, BED LOCKED. FALL, RESPIRATORY, ASPIRATION AND SAFETY PRECAUTIONS IN PLACE THROUGHOUT SHIFT. ALL NEEDS MET THROUGHOUT SHIFT. WILL ENDORSE CARE TO ONCOMING SHIFT.
--- NOTE | 2021-04-15 08:00 | NUR ---
ASSUMPTION OF CARE: PATIENT RESTING, NO SIGNS OF DISTRESS NOTED. FAMILY AT BEDSIDE. CALL LIGHT WITHIN REACH, PATIENT DEMONSTRATES PROPER USAGE OF CALL LIGHT, BED ALARM ON, BED AT LOWEST POSITION, BED LOCKED. HOB ELEVATED. SLING AND PILLOW IN PLACE UNDER RIGHT ARM. FALL, RESPIRATORY, ASPIRATION AND SAFETY PRECAUTIONS IN PLACE. WILL CONTINUE TO MONITOR.
[2021-04-15 08:30] VITALS: BP_SYST 104
[2021-04-15 08:53] LABS: BILIRUBIN,DIRECT 0.2 mg/dL (0.0-0.3); CALCIUM 8.7 mg/dL (8.4-11.0); CREATININE 0.53 mg/dL (0.55-1.30); POTASSIUM 3.9 mmol/L (3.5-5.1)
[2021-04-15] MEDS: ENOXAPARIN SODIUM 40 MG/0.4 ML SYRINGE SUBCUT SCH (09:00)
[2021-04-15] MEDS: FERROUS SULFATE 325 MG TABLET.DR PO SCH ×2 (09:00→21:41)
[2021-04-15] MEDS: LIDOCAINE PATCH 5% 1 EA TP SCH (09:00)
[2021-04-15] MEDS: PSYLLIUM HUSK 1 PKT PACKET PO SCH ×3 (09:00→21:41)
[2021-04-15] MEDS: DOCUSATE SODIUM 100 MG CAPSULE PO SCH ×2 (09:00→21:41)
--- NOTE | 2021-04-15 09:00 | NUR ---
SOCIAL RESEARCH ASSISTANT: MEDICATION GIVEN, PER ORDERED BY Pedrito, TOLERATED WELL, WILL CONT' TO MONITOR AND ASSESS.
[2021-04-15 10:00] LABS: TOTAL IRON BIND. CAPACITY 228 ug/dL (250-450)
[2021-04-15] MEDS: LEVOFLOXACIN IN DEXTROSE 5 % 100 ML IV SCH (11:19)
[2021-04-15 12:30] LABS: C-REACTIVE PROTEIN QUANT 8.9 mg/dL (0-0.5)
[2021-04-15 13:44] LABS: PROTHROMBIN TIME 10.9 SECS (9.5-12.5)
[2021-04-15 15:18] LABS: ERYTHROCYTE SEDIMENTATION RATE 85 MM/HR (0-20)
[2021-04-15 16:33] VITALS: BP_SYST 105
[2021-04-15] MEDS: MORPHINE 2 MG/ML INJ. SYRINGE IVP PRN ×2 (17:21→21:42)
--- NOTE | 2021-04-15 19:15 | NUR ---
OPENING NOTE REPORT RECEIVED FROM DAYSSDFT NURSE. PATIENT RECEIVED SITTING ON CHAIR AT BEDSIDE. NO S/S OF ACUTE DISTRESS NOTED. BREATHING EVEN AND UNLABORED. IV SITE IS PATENT, NO SIGNS OF INFILTRATION OR INFECTION NOTED. SKIN WARM AND DRY TO TOUCH, NO S/S OF HYPOGLYCEMIA NOTED. SLING PLACED ON RIGHT ARM. SWELLING NOTED ON RIGHT HAND. NEURO CHECK DONE, WNL. CALL LIGHT ON BED, INSTRUCTED PATIENT AND FAMILY TO CALL FOR ANY ASSISTANCE, VERBALIZED UNDERSTANDING. WILL CONTINUE TO MONITOR.
--- NOTE | 2021-04-15 21:14 | NUR ---
Paged Dr. Hardy dialed pager #[phone]
--- NOTE | 2021-04-15 21:15 | NUR ---
Paged Dr. Marte [phone], s/w Rosi
--- NOTE | 2021-04-15 22:00 | NUR ---
SPOKE TO DR MCARTHUR, DR. ANDRE INFORMED DR. MCARTHUR OF CRITICAL LAB, FIBRINOGEN HIGH. NO NEW ORDERS GIVEN. INFORMED DR. ANDRE RESULTS ON CT OF CHEST WITH CONTRAST, 15% PNEUMOTHORAX NOTED. MD ORDERED FOR CXR IN THE MORNING, AND TO HAVE PATIENT ON OXYGEN THROUGHOUT NIGHT. WILL CARRY OUT.
[2021-04-15] MEDS: INSULIN REGULAR, HUMAN 100 UNITS/ML, 10 ML VIAL (humuLIN R) SUBCUT PRN (23:45)
[2021-04-16 00:23] VITALS: BP_SYST 124
[2021-04-16] MEDS: OXYCODONE/ACETAMINOPHEN 5-325 TABLET PO PRN ×5 (01:39→21:35)
[2021-04-16] MEDS: IPRATROPIUM/ALBUTEROL SULFATE 3 ML AMPUL.NEB (DUONEB) INH SCH ×6 (03:00→23:25)
--- NOTE | 2021-04-16 06:26 | NUR ---
CLOSING NOTE PATIENT IN BED, SLEEPING AT THIS TIME. NO S/S OF ACUTE DISTRESS. BREATHING EVEN AND UNLABORED. HOB RAISED. NASAL CANULA ATTACHED PROPERLY, ON 2L OF OXYGEN. IV SITE IS PATENT, NO SIGNS OF INFILTRATION OR INFECTION NOTED. SKIN WARM AND DRY TO TOUCH, NO S/S OF HYPOGLYCEMIA NOTED. ALL NEEDS MET THROUGHOUT SHIFT. FALL, SAFETY PRECAUTIONS MAINTAINED THROUGHOUT SHIFT. WILL CONTINUE TO MONITOR UNTIL PATIENT CARE IS ENDORSED TO ONCOMING DAYSHIFT NURSE.
[2021-04-16 07:06] LABS: FOLATE (FOLIC ACID) 6.8 ng/mL (>3.0)
[2021-04-16] MEDS: DOCUSATE SODIUM 100 MG CAPSULE PO SCH ×2 (07:53→21:11)
[2021-04-16] MEDS: FERROUS SULFATE 325 MG TABLET.DR PO SCH ×2 (07:53→21:10)
[2021-04-16] MEDS: ENOXAPARIN SODIUM 40 MG/0.4 ML SYRINGE SUBCUT SCH (07:54)
[2021-04-16] MEDS: PSYLLIUM HUSK 1 PKT PACKET PO SCH ×3 (07:54→21:11)
[2021-04-16 08:00] VITALS: BP_SYST 121
--- NOTE | 2021-04-16 08:00 | NUR ---
0800: Received pt A+O x4, laying in bed sleeping at 0700. Family at bedside. Pt c/o pain to R shoulder- see eMAR. IV S/L noted to L forearm- patent. CSMW satisfactory. No headache, dizziness, chest pain, numbess or tingling, SOB/cough. Edema noted to R hand, pulses palpable. Lungs clear. RA 99% on 2L [employer]. BS x4. LBM Apr 16. SBA + cane with ADLs and mobility. VSS. Med accepting. Will continue to monitor.
[2021-04-16] MEDS: LEVOFLOXACIN IN DEXTROSE 5 % 100 ML IV SCH (08:03)
[2021-04-16] MEDS: LIDOCAINE PATCH 5% 1 EA TP SCH (08:03)
[2021-04-16] MEDS: ACETAMINOPHEN 325 MG TABLET PO PRN (08:04)
[2021-04-16 08:35] LABS: BASOPHILS % (AUTO) 0.5 % (0.0-2.0); EOSINOPHILS # (AUTO) 0.3 K/uL (0.0-0.4); EOSINOPHILS % (AUTO) 4.2 % (0.0-4.0); HEMATOCRIT 27.1 % (36-48); HEMOGLOBIN 8.7 g/dL (12.0-16.0); LYMPHOCYTES # (AUTO) 1.4 K/uL (1.0-5.5); LYMPHOCYTES % (AUTO) 20.4 % (20.5-51.5); MEAN CORPUSCULAR HEMOGLOBIN 31 pg (27-31); MEAN CORPUSCULAR HGB CONC 32 % (32-36); MEAN CORPUSCULAR VOLUME 96 fL (79.0-98.0); MONOCYTES # (AUTO) 0.8 K/uL (0.0-1.0); MONOCYTES % (AUTO) 11.9 % (1.7-9.3); NEUTROPHILS # (AUTO) 4.3 K/uL (1.8-7.7); PLATELET COUNT (AUTO) 358 K/uL (130-430); RED BLOOD CELL COUNT(AUTO) 2.82 MIL/uL (4.2-6.2); RED CELL DISTRIBUTION WIDTH 15.1 % (9.0-15.0); WHITE BLOOD COUNT (AUTO) 6.9 K/uL (4.8-10.8)
--- NOTE | 2021-04-16 09:54 | NUR ---
PHYSICAL THERAPY CO-SIGN The Physical Therapy Progress Notes documented by Registered Nurse First Assistant have been reviewed. Reviewed/Co-Signed by: Rony Ochoa Documentation Done by: HUGO PENA PTA Addendum: 04/16/21 at 0955 by Rony Ochoa PT Amended: Links added.
[2021-04-16 11:26] VITALS: BP_SYST 129
[2021-04-16 12:37] LABS: ALBUMIN 2.7 g/dL (3.4-4.8); CALCIUM 8.9 mg/dL (8.4-11.0); CREATININE 0.55 mg/dL (0.55-1.30); POTASSIUM 4.2 mmol/L (3.5-5.1); TOTAL BILIRUBIN 0.9 mg/dL (0.0-1.0)
--- NOTE | 2021-04-16 12:39 | NUR ---
Patient has been observed twice safely ambulating with her family and nurses in the hallway and the room. She is using the single point cane and requires CGA to SBA during ambulation. She has been ambulating over 100 ft. Transfers out of bed and the toilet have been assisted by the family and nursing staff due to the left shoulder being immobilized. Patient does not appear to need further Physical Therapy intervention at this time since she is safely ambulating with her caregivers, (family and nursing staff).
[2021-04-16 12:50] VITALS: BP_SYST 129
[2021-04-16 15:38] VITALS: BP_SYST 121
--- NOTE | 2021-04-16 18:05 | NUR ---
Pt resting in bed, family at bedside. VSS. No voiced concerns. Pain controlled at present. Will continue to monitor. Call heard in reach. Bed in low position.
[2021-04-16 20:00] VITALS: BP_SYST 122
--- NOTE | 2021-04-16 20:00 | NUR ---
Opening notes Pt AAOx4, sitting on a chair, VSS, no s/s distress noted. Son at bedside. IV saline locked L. FA clear and patent. To monitor.
[2021-04-16] MEDS ORDERED: CALCIUM 600/VIT D PO SCH (21:00)
[2021-04-16] MEDS: CALCIUM CARBONATE/VITAMIN D3 1 TAB TABLET PO SCH (21:10)
--- NOTE | 2021-04-16 23:30 | NUR ---
Rounds/BS check Pt alert, awake. BS checked 149. R. arm maintained on sling and floated on pillow. Pt requested bedpan, bedpan provided and pt voided. Call light within reach. Son at bedside. To monitor.
[2021-04-17] VITALS (7 sets, daily range): BP systolic 112–138
[2021-04-17] MEDS: OXYCODONE/ACETAMINOPHEN 5-325 TABLET PO PRN ×5 (01:30→14:45)
[2021-04-17] MEDS: IPRATROPIUM/ALBUTEROL SULFATE 3 ML AMPUL.NEB (DUONEB) INH SCH ×4 (02:45→20:50)
--- NOTE | 2021-04-17 06:23 | NUR ---
Closing notes Pt alert, awake, no s/s distress. Pt medicated with Percocet 2 tabs for c/o 7/10 R. shoulder pain. BS checked, 92. Pt assisted to bedpan and voided, pericare provided. Call light within reach. Bed low, locked, siderails up x3, To monitor.
[2021-04-17 07:05] LABS: BASOPHILS % (AUTO) 0.4 % (0.0-2.0); EOSINOPHILS # (AUTO) 0.3 K/uL (0.0-0.4); EOSINOPHILS % (AUTO) 5.1 % (0.0-4.0); HEMATOCRIT 23.2 % (36-48); HEMOGLOBIN 7.7 g/dL (12.0-16.0); LYMPHOCYTES # (AUTO) 1.5 K/uL (1.0-5.5); LYMPHOCYTES % (AUTO) 25.7 % (20.5-51.5); MEAN CORPUSCULAR HEMOGLOBIN 31 pg (27-31); MEAN CORPUSCULAR HGB CONC 33 % (32-36); MEAN CORPUSCULAR VOLUME 93 fL (79.0-98.0); MONOCYTES # (AUTO) 0.7 K/uL (0.0-1.0); MONOCYTES % (AUTO) 12.2 % (1.7-9.3); NEUTROPHILS # (AUTO) 3.2 K/uL (1.8-7.7); NEUTROPHILS % (AUTO) 56.6 % (40.0-70.0); PLATELET COUNT (AUTO) 357 K/uL (130-430); RED BLOOD CELL COUNT(AUTO) 2.49 MIL/uL (4.2-6.2); RED CELL DISTRIBUTION WIDTH 14.6 % (9.0-15.0); WHITE BLOOD COUNT (AUTO) 5.7 K/uL (4.8-10.8)
[2021-04-17 07:41] LABS: CALCIUM 8.4 mg/dL (8.4-11.0); CREATININE 0.53 mg/dL (0.55-1.30)
[2021-04-17] MEDS: DOCUSATE SODIUM 100 MG CAPSULE PO SCH (08:13)
[2021-04-17] MEDS: FERROUS SULFATE 325 MG TABLET.DR PO SCH (08:13)
[2021-04-17] MEDS: PSYLLIUM HUSK 1 PKT PACKET PO SCH ×2 (08:13→14:43)
[2021-04-17] MEDS: LIDOCAINE PATCH 5% 1 EA TP SCH (08:13)
[2021-04-17] MEDS: CALCIUM CARBONATE/VITAMIN D3 1 TAB TABLET PO SCH (08:13)
[2021-04-17] MEDS: LEVOFLOXACIN IN DEXTROSE 5 % 100 ML IV SCH (08:13)
[2021-04-17] MEDS: ENOXAPARIN SODIUM 40 MG/0.4 ML SYRINGE SUBCUT SCH (08:21)
[2021-04-17] MEDS: INSULIN REGULAR, HUMAN 100 UNITS/ML, 10 ML VIAL (humuLIN R) SUBCUT PRN (11:20)
--- NOTE | 2021-04-17 14:55 | NUR ---
RN note Spoke with regarding patient wanting to shower, MD says its ok, incision can get wet and new dressing does not need to be placed unless patient wants it.
[2021-04-17] MEDS ORDERED: OXYC-128 PO (18:18)
[2021-04-17] MEDS ORDERED: Lidocaine Patch 5% TP (18:18)
[2021-04-17] MEDS ORDERED: LOVI40 SUBCUT (18:18)
[2021-04-17] MEDS ORDERED: DOCU-144 PO (18:18)
[2021-04-17] MEDS ORDERED: Ferrous Sulfate PO (18:18)
[2021-04-17] MEDS ORDERED: PSYL3.4P5 PO (18:18)
[2021-04-17] MEDS ORDERED: OSCD500 PO (18:18)
[2021-04-17] MEDS: MORPHINE 2 MG/ML INJ. SYRINGE IVP PRN (19:01)
--- NOTE | 2021-04-17 20:20 | NUR ---
D/C Patient Patient given medication reconciliation form and D/C instructions. Exit Care provided. Patient verbalized understanding. MD discussed with patient the results and treatment provided. Patient in stable condition, VSS, ID band removed. IV catheter removed, intact and dressing applied, no active bleeding. All belongings sent with patient. Accompanied by family.
== END 2021-04-17 20:21 | disposition home health service (06) | DRG 315 ==
LOC: SED 16:23 → SMU 20:44
PROVIDERS: ADMIT Preventive Medicine Preventive Medicine/Occupational Environmental Medicine; ATTEND Preventive Medicine Preventive Medicine/Occupational Environmental Medicine
PROC: 0PSF04Z Reposition Right Humeral Shaft with Internal Fixation Device, Open Approach (ICD-10-PCS; principal; 2021-04-10 13:58)
PROC: 30233N1 Transfusion of Nonautologous Red Blood Cells into Peripheral Vein, Percutaneous Approach (ICD-10-PCS; 2021-04-12)
DX: S42.211A Unspecified displaced fracture of surgical neck of right humerus, initial encounter for closed fracture (principal); J96.01 Acute respiratory failure with hypoxia; E43 Unspecified severe protein-calorie malnutrition; S22.42XA Multiple fractures of ribs, left side, initial encounter for closed fracture; S42.252A Displaced fracture of greater tuberosity of left humerus, initial encounter for closed fracture; E87.1 Hypo-osmolality and hyponatremia; E11.65 Type 2 diabetes mellitus with hyperglycemia; E87.6 Hypokalemia; E03.9 Hypothyroidism, unspecified; E83.52 Hypercalcemia; I10 Essential (primary) hypertension; K21.9 Gastro-esophageal reflux disease without esophagitis; Z20.822 Contact with and (suspected) exposure to COVID-19; R79.89 Other specified abnormal findings of blood chemistry; E78.5 Hyperlipidemia, unspecified; D64.9 Anemia, unspecified; S27.329A Contusion of lung, unspecified, initial encounter; J93.83 Other pneumothorax; R53.81 Other malaise; E80.6 Other disorders of bilirubin metabolism; D72.829 Elevated white blood cell count, unspecified; V43.52XA Car driver injured in collision with other type car in traffic accident, initial encounter; Y92.410 Unspecified street and highway as the place of occurrence of the external cause; Z79.01 Long term (current) use of anticoagulants; Z90.49 Acquired absence of other specified parts of digestive tract; Z90.710 Acquired absence of both cervix and uterus; Z98.891 History of uterine scar from previous surgery; Y93.89 Activity, other specified; Y99.8 Other external cause status
CPT/HCPCS: 36415; 70450-TC; 71045; 71260-TC; 73030; 73060-TC; 73200-TC; 76000; 76376; 76604; 80048; 80053; 81000; 82247; 82248; 82272; 82607; 82728; 82746; 82962; 83540; 83550; 83735; 83880; 84100; 85025; 85044; 85384; 85610-TC; 85651-TC; 85730-TC; 86140; 86886; 86900; 86901; 86920; 93005; 93971; 94010; 94640; 94760; 96374; 97110-GP; 97116-GP; 97163-GP; 97530-GP; 99285; A4565; C1713; C9290; J0690; J1100; J1170; J1650; J1815; J1885; J1956; J2250; J2270; J2405; J2704; J2765; J3010; J3430; J3490; J7120; P9021; Q9967

== ENCOUNTER 2021-04-23 14:02 | Emergency (ER) | payer MEDICAID, OTHER ==
[~2021-04-23] VITALS: Ht 154.9 cm; Wt 79.4 kg
[~2021-04-23 14:02] MED LIST: DOCU-144 PO; Ferrous Sulfate PO; LEVO100T9 PO; LIP10 PO; LOSA50TA3 PO; LOVI40 SUBCUT; Lidocaine Patch 5% TP; METF-518 PO; OSCD500 PO; OXYC-128 PO; PANT20TA2 PO; PSYL3.4P5 PO
[2021-04-23 14:43] VITALS: BP_SYST 159
[2021-04-23] MEDS ORDERED: ACETAMINOPHEN 500 MG TABLET PO ONE (17:30)
[2021-04-23] MEDS ORDERED: OXYCODONE/ACETAMINOPHEN 5-325 TABLET PO ONE (17:30)
[2021-04-23 17:56] LABS: BASOPHILS # (AUTO) 0.1 K/uL (0.0-0.2); EOSINOPHILS # (AUTO) 0.4 K/uL (0.0-0.4); EOSINOPHILS % (AUTO) 4.8 % (0.0-4.0); HEMATOCRIT 31.2 % (36-48); HEMOGLOBIN 10.4 g/dL (12.0-16.0); LYMPHOCYTES # (AUTO) 1.2 K/uL (1.0-5.5); LYMPHOCYTES % (AUTO) 13.7 % (20.5-51.5); MEAN CORPUSCULAR HEMOGLOBIN 32 pg (27-31); MEAN CORPUSCULAR HGB CONC 33 % (32-36); MEAN CORPUSCULAR VOLUME 96 fL (79.0-98.0); MONOCYTES # (AUTO) 0.5 K/uL (0.0-1.0); MONOCYTES % (AUTO) 5.3 % (1.7-9.3); NEUTROPHILS # (AUTO) 6.6 K/uL (1.8-7.7); NEUTROPHILS % (AUTO) 75.2 % (40.0-70.0); PLATELET COUNT (AUTO) 527 K/uL (130-430); RED BLOOD CELL COUNT(AUTO) 3.24 MIL/uL (4.2-6.2); RED CELL DISTRIBUTION WIDTH 17.7 % (9.0-15.0); WHITE BLOOD COUNT (AUTO) 8.8 K/uL (4.8-10.8)
[2021-04-23 18:09] LABS: CALCIUM 10.2 mg/dL (8.4-11.0); CREATININE 0.55 mg/dL (0.55-1.30); POTASSIUM 3.8 mmol/L (3.5-5.1)
[2021-04-23 18:14] LABS: ALBUMIN 3.5 g/dL (3.4-4.8); TOTAL BILIRUBIN 0.6 mg/dL (0.0-1.0)
[2021-04-23 18:39] LABS: PROTHROMBIN TIME 10.9 SECS (9.5-12.5)
[2021-04-23 19:01] VITALS: BP_SYST 138
[2021-04-23] MEDS ORDERED: FURO-150 PO (20:02)
== END 2021-04-23 20:20 | disposition home or self-care (01) ==
LOC: SED 14:02
DX: M79.605 Pain in left leg (principal); I10 Essential (primary) hypertension; E11.9 Type 2 diabetes mellitus without complications; Z79.84 Long term (current) use of oral hypoglycemic drugs; Z79.899 Other long term (current) drug therapy
CPT/HCPCS: 36415; 80053; 83880; 85025; 85610-TC; 85730-TC; 93971; 99284